=== PATIENT | female | born 1985 | race Caucasian/White ===

== ENCOUNTER 2018-04-27 03:18 | Inpatient (IN) | payer BC ==
[~2018-04-27] VITALS: Ht 160 cm; Wt 80.9 kg
[~2018-04-27 03:18] MED LIST: ALBUTEROL SULF8.5 GM IH; BENADRYL25 MG PO; ENDOCET 5-3251 EACH PO; IBUPROFEN800 MG PO; Motrin PO; PRENATAL MULTI1 EAC2 PO; Percocet 5/325,Endoc PO
[2018-04-27 05:53] VITALS: BP 120/77
[2018-04-27 06:57] LABS: COCAINE NEGATIVE (150 ng/mL); METHAMPHETAMINE NEGATIVE (500 ng/mL); PHENCYCLIDINE NEGATIVE (25 ng/mL); THC CANNABINOIDS NEGATIVE (50 ng/mL)
[2018-04-27 06:58] LABS: AMPHETAMINE NEGATIVE (500 ng/mL); BARBITURATES NEGATIVE (200 ng/mL); BENZODIAZEPINES NEGATIVE (150 ng/mL); BUPRENORPHINE NEGATIVE (10 ng/mL); METHADONE NEGATIVE (200 ng/mL); OPIATES (MORPHINE) NEGATIVE (100 ng/mL); OXYCODONE NEGATIVE (100 ng/mL); PROPOXYPHENE NEGATIVE (300 ng/mL); TRICYCLIC ANTIDEPRESSANTS NEGATIVE (300 ng/mL)
[2018-04-27] MEDS ORDERED: DOCUSATE SODIU100 MG PO (09:10)
[2018-04-27] MEDS ORDERED: ENDOCET 5-3251 EACH PO (09:11)
[2018-04-27] MEDS ORDERED: IBUPROFEN800 MG PO (09:11)
[2018-04-27 10:14] VITALS: BP 114/68
[2018-04-27 12:00] VITALS: BP 110/60
[2018-04-27 19:51] VITALS: BP 99/55
[2018-04-28 05:55] LABS: BASOPHIL (%) 0.2 % (0-1); EOSINOPHIL (%) 1.6 % (0-5); EOSINOPHIL COUNT 0.2 K/uL (0-0.3); HEMATOCRIT 28.4 % (36.0-46.0); IMMATURE GRANULOCYTE (%) 0.3 % (0.0-0.7); LYMPHOCYTE (%) 17.8 % (15-42); LYMPHOCYTE COUNT 2.1 K/uL (1.0-2.8); MCH 30.2 PG (29.0-34.0); MCHC 33.1 G/DL (30.0-36.0); MCV 91.3 FL (83-99); MONOCYTE (%) 7.7 % (3-12); MONOCYTE COUNT 0.9 K/uL (0-0.8); NEUTROPHIL (%) 72.4 % (45-76); NEUTROPHIL COUNT 8.4 K/uL (1.8-6.4); PLATELET COUNT 146 K/uL (156-360); RBC DIS.WIDTH-CV 14.3 % (11.8-14.6); RBC DIS.WIDTH-SD 47.9 % (39-53); WHITE BLOOD COUNT 11.5 K/uL (4.1-10.2)
[2018-04-28 05:56] LABS: HEMOGLOBIN 9.4 G/DL (11.9-15.5); RED BLOOD COUNT 3.11 M/uL (3.80-5.20)
[2018-04-28 19:43] VITALS: BP 114/73
[2018-04-28 23:08] VITALS: BP 108/67
[2018-04-29 02:59] VITALS: BP 124/69
== END 2018-04-29 12:24 | disposition home or self-care (01) | DRG 766 ==
LOC: 2SOUTH 03:18 → 2WEST 05:33 → 2SOUTH 08:56 → 2WEST 04-29 12:24
PROVIDERS: Obstetrics & Gynecology
PROC: 10D00Z1 Extraction of Products of Conception, Low, Open Approach (ICD-10-PCS; principal; 2018-04-27)
DX: O32.3XX0 Maternal care for face, brow and chin presentation, not applicable or unspecified (principal); O34.211 Maternal care for low transverse scar from previous cesarean delivery; Z3A.39 39 weeks gestation of pregnancy; Z37.0 Single live birth; J45.20 Mild intermittent asthma, uncomplicated; O99.52 Diseases of the respiratory system complicating childbirth
CPT/HCPCS: 36415; 85025; 86850; 86900; 86901; J1580; J1885; J2274; J2405; J7050; J7120; S0020